=== PATIENT | female | born 1955 ===

== ENCOUNTER 2017-04-30 09:26 | Emergency (ER) | payer OTHER ==
[~2017-04-30] VITALS: Ht 157.5 cm; Wt 78.8 kg
[2017-04-30 09:31] VITALS: Ht 157.5 cm; Wt 78.8 kg
[2017-04-30] MEDS ORDERED: KETOROLAC 60 MG INJ IM STA (09:55)
--- NOTE | 2017-04-30 10:30 | RADRPT ---
PROCEDURE: Chest Radiograph. CLINICAL INDICATION: Cough TECHNIQUE: Single frontal chest radiograph. COMPARISON: None available FINDINGS: The cardiomediastinal silhouette is within normal limits. No infiltrate or effusion is seen. Th e bones are intact. IMPRESSION: 1. Unremarkable chest radiograph. RPTAT: KK .Nick Cabello MD, MD Date Time Electronically viewed and signed by .Nick Cabello MD, on 04/30/2017 10:29 .B/
[2017-04-30] MEDS ORDERED: IBUP400T22 PO (11:05)
[2017-04-30] MEDS ORDERED: BENZ100C70 PO (11:05)
[2017-04-30] MEDS ORDERED: LEVO500T72 PO (11:11)
--- NOTE | 2017-04-30 12:30 | ERD ---
ER Documentation Chief Complaint Date/Time DATE: 04/30/17 TIME: 12:27 Chief Complaint flu x 1 week with cough,runny nose, ear aches HPI 61-year-old female patient with a past medical history of diabetes presents to the ED complaining of a productive cough, rhinorrhea that started 1 week ago and right ear pain that started yesterday. States that she tried taking medications, unknown name which did not alleviate her symptoms. Denies any chest pain, fever, headache, weakness, wheezing, shortness of breath, dyspnea on exertion, orthopnea, leg swelling, abdominal pain, nausea, vomiting. Denies any sick contacts. ROS All systems reviewed and are negative except as per history of present illness. Medications Home Meds Active Scripts Levofloxacin* (Levaquin*) 500 Mg Tablet, 500 MG PO DAILY for 7 Days, TAB Prov:STEPHANIE TRAMMELL PA-C 04/30/17 Benzonatate* (Tessalon Perle*) 100 Mg Capsule, 100 MG PO Q8H Y for COUGH, #20 CAP Prov:STEPHANIE TRAMMELL PA-C 04/30/17 Ibuprofen* (Motrin*) 400 Mg Tab, 400 MG PO Q6, #30 TAB Prov:STEPHANIE TRAMMELL PA-C 04/30/17 PMhx/Soc Medical and Surgical Hx: pt denies Medical Hx, pt denies Surgical Hx Hx Alcohol Use: No Hx Substance Use: No Hx Tobacco Use: No Smoking Status: Never smoker Physical Exam Vitals Vital Signs Date Time Temp Pulse Resp B/P Pulse Ox O2 Delivery O2 Flow Rate FiO2 04/30/17 09:31 98.1 87 18 155/82 99 Physical Exam Const: [id number], well-nourished. In no acute distress. Head: Atraumatic, normocephalic Eyes: Normal Conjunctiva without injection. No purulent discharge. PERRL. EOMI ENT: Normal external ear. Left ear canal without erythema. Left tympanic membrane pearly elizabeth without effusion or bulging. Right erythematous ear canal with decreased light reflex of the right tympanic membrane. No tenderness to palpation of the tragus or mastoid. Nasal canal clear with normal turbinates. Moist oropharynx without tonsillar exudates. Non-erythematous pharynx. Uvula midline. No drooling. No trismus. Neck: Full range of motion. No meningismus. No cervical lymphadenopathy. Resp: Clear to auscultation bilaterally. No wheezing, rhonchi, rales, or crackles. No accessory muscle use. No retractions. Cardio: Regular rate and rhythm. No murmurs, rubs or gallops. Abd: Soft, non tender, non distended. Normal bowel sounds. No palpable masses. No rebound tenderness. No guarding. Skin: No petechiae or rashes Back: No midline tenderness. No CVA tenderness. Ext: No cyanosis, or edema. Neur: Awake and alert. Psych: Normal Mood and Affect Results 24 hrs Current Medications Medications (Trade) Dose Ordered Sig/Day Route PRN Reason Start Time Stop Time Status Last Admin Dose Admin Ketorolac Tromethamine (Toradol) 60 mg ONCE STAT IM 04/30/17 09:55 04/30/17 09:57 DC 04/30/17 10:05 Procedures/MDM 61-year-old female patient with a past medical history of diabetes presents to the ED complaining of a productive cough, rhinorrhea, right ear pain. Patient is afebrile and nontoxic-appearing. Patient has normal vital signs. Patient was given Toradol here in the ED with improvement of her symptoms. Patient's physical exam is consistent with otitis media. Patient does not have tenderness to palpation of tragus or mastoid. Low suspicion for otitis externa or mastoiditis. Patient's physical exam include lungs which were clear to auscultation and a normal pulse oximetry. Patient is speaking in full sentences. There is a low suspicion for pneumonia, epiglottitis, croup, viral/ strep pharyngitis, sinusitis, peritonsillar abscess, retropharyngeal abscess, meningitis, sepsis, acute abdomen or other emergent conditions. This case was discussed with my supervising physician, Dr. Degroot who agreed with the management and discharge plan. Discharge medications: Levaquin, Tessalon Perles, Ibuprofen Follow up with primary care physician in 1-2 days. Instructed patient to return to the ED sooner for any worsening symptoms. Patient's questions were answered. Patient understood and agreed with discharge plan. Patient discharged stable. Departure Diagnosis: Primary Impression: Right ear pain Additional Impression: Cough Condition: Stable Referrals: COMM[facility] YOU HAVE RECEIVED A MEDICAL SCREENING EXAM AND THE RESULTS INDICATE THAT YOU DO NOT HAVE A CONDITION THAT REQUIRES URGENT TREATMENT IN THE EMERGENCY DEPARTMENT. FURTHER EVALUATION AND TREATMENT OF YOUR CONDITION CAN WAIT UNTIL YOU ARE SEEN IN YOUR DOCTORS OFFICE WITHIN THE NEXT 1-2 DAYS. IT IS YOUR RESPONSIBILITY TO MAKE AN APPOINTMENT FOR FOLOW-UP CARE. IF YOU HAVE A PRIMARY DOCTOR --you should call your primary doctor and schedule an appointment IF YOU DO NOT HAVE A PRIMARY DOCTOR YOU CAN CALL OUR PHYSICIAN REFERRAL HOTLINE AT IF YOU CAN NOT AFFORD TO SEE A PHYSICIAN YOU CAN CHOSE FROM THE FOLLOWING [facility] [address] [facility] [address] [facility] [facility] [address] [facility] [address] [facility] [address] [facility] [address] [facility] [facility] YOU HAVE RECEIVED A MEDICAL SCREENING EXAM AND THE RESULTS INDICATE THAT YOU DO NOT HAVE A CONDITION THAT REQUIRES URGENT TREATMENT IN THE EMERGENCY DEPARTMENT. FURTHER EVALUATION AND TREATMENT OF YOUR CONDITION CAN WAIT UNTIL YOU ARE SEEN IN YOUR DOCTORS OFFICE WITHIN THE NEXT 1-2 DAYS. IT IS YOUR RESPONSIBILITY TO MAKE AN APPOINTMENT FOR FOLOW-UP CARE. IF YOU HAVE A PRIMARY DOCTOR --you should call your primary doctor and schedule and appointment IF YOU DO NOT HAVE A PRIMARY DOCTOR YOU CAN CALL OUR PHYSICIAN REFERRAL HOTLINE AT . IF YOU CAN NOT AFFORD TO SEE A PHYSICIAN YOU CAN CHOSE FROM THE FOLLOWING [facility]: [facility] [address] [place] [address] [facility] [address] [place] [address] [facility] [address] [place] [address] [facility] URGENT [facility]/SPECIALTIES Additional Instructions: Call your primary care doctor for an appointment during the next 3 days.See the doctor sooner or return here if your condition worsens before your appointment time - fever, headache, vomiting, worsening pain etc. STEPHANIE TRAMMELL PA-C Apr 30, 2017 12:29 STEPHANIE TRAMMELL PA-C Apr 30, 2017 12:29
== END 2017-04-30 11:23 | disposition home or self-care (01) ==
LOC: FTE 09:26
DX: H92.01 Otalgia, right ear (principal)
CPT/HCPCS: 71010; 96372; J1885; Z7502